=== PATIENT | male | born 1960 | race Caucasian/White ===

== ENCOUNTER 2017-02-10 09:24 | Inpatient (IN) | payer BC ==
[~2017-02-10] VITALS: Ht 180.3 cm; Wt 151.1 kg
--- NOTE | 2017-02-10 09:30 | NUR ---
PT ARRIVE TO ROOM 122 AT THIS TIME. HE REPORTS PAIN 4/10 THROBBING AFTER AMBUALTING TO BATHROOM TO CHANGE INTO GOWN AND VOID. HE IS ALERT AND ORIENTED.
--- NOTE | 2017-02-10 11:34 | NUR ---
PT IS RESTING IN BED, RIGHT LEG IN OVERHEAD SLING ELEVATED AT HEART LEVEL. HE HAS BEEN GIVEN 2MG I.V. MORPHINE AND ONE TAB NORCO ORAL FOR PAIN 10/10. HE IS DRINKING WATER EATING APPLESAUCE AND HAS BEEN GIVEN MENU TO ORDER LUNCH. HAS BEEN IN TO ASSESS PT, RE-DRESS RIGHT FOOT AND COLLECT SAMPLE OF DRAINAGE FOR LAB.
--- NOTE | 2017-02-10 15:05 | NUR ---
PATIENT IN BED RESTING WATCHING TV. CALL BUTTON IN REACH. NO OTHER NEEDS AT THIS TIME.
--- NOTE | 2017-02-10 16:00 | NUR ---
ASSISTED PATIENT BACK TO BED FROM BATHROOM. SCDS ON. FRESH ICE WATER AND SODA GIVEN. CALL BUTTON IN REACH. RIGHT FOOT ELEVATED WITH SLING. NO OTHER NEEDS AT THIS TIME.
--- NOTE | 2017-02-10 16:34 | NUR ---
PT RESTING IN BED AFTER UP TO BATHROOM TO HAVE BM, ONE PERSON STANDBY ASSIST. PT REPORTS PAIN IS BETTER AT 4-5/10, HE WOULD LIKE IT TO BE BETTER, ONE NORCO ADMINISTERED 10/325 PO PRN. PT IS A 1 ON CIWA SCALE.
--- NOTE | 2017-02-10 16:46 | NUR ---
PT RESTING IN BED RIGHT LEG UP ELEVATED IN OVERHEAD LIFT SLING. PT TOELRATING WELL
--- NOTE | 2017-02-10 17:36 | NUR ---
PT REPORTS PAIN 5/10. 2MG I.V. MORPHINE ADMINSTRATED AT THIS TIME. PT ALERT AND ORIENTED, SPOUSE AT BEDSIDE. RN DISCUSSED WITH PT SOME OF THE THINGS TO EXPECT TOMORROW BEFORE AND AFTER SURGERY
--- NOTE | 2017-02-10 18:26 | NUR ---
PT DIRECT ADMIT THIS AM 0930. HE HAS BEEN ALERT AND ORIENTED, SCORED 1 ON CIWA, RIGHT LEG ELEVATED IN OVER HEAD SLING. PT REPORTS PAIN ON GOING 4-6/10, HAVE BEEN GIVING 2MG I.V. AND NORCO AVAILABLE PRN. HE IS ONE PERSON ASSIST. RED AND SWELLING HAS IMPROVED OVER SHIFT. HE HAS BEEN EATING WELL NO NAUSEA, AFEBRILE. IS CONSULTING AND HAS BEEN IN TO ASSESS PT AND RE-DRESSED RIGHT FOOT. PT HAS BEEN COOPERATIVE WITH CARE PLAN. PT SCHEDULED FOR SURGERY TOMORROW AT 1145.
--- NOTE | 2017-02-10 18:40 | NUR ---
PATIENT SITTING UP IN BED WATCHING TV. RN IN ROOM TALKING TO PATIENT. IN ROOM. CALL BUTTON IN REACH. ICE WATER GIVEN.
--- NOTE | 2017-02-10 18:43 | NUR ---
CALLED TO NOTIFY OF PT B/P ELEVATED. SAID SHE WOULD ADD SOME ORDERS
--- NOTE | 2017-02-10 20:00 | NUR ---
RECEIVED REPORT AT 1930. FOUND PT IN BED WATCHING TV. PT STATED AT THAT TIME THAT HIS PAIN WAS TOLERABLE. PT OVERALL SEEMS A LITTLE FRUSTRATED.
--- NOTE | 2017-02-10 22:33 | NUR ---
AT 2014 SBP WAS 189, MD RASH WAS CALLED. PT RECEIVED LISINOPRIL 1 HOUR PRIOR. PER MD WILL CONTINUE TO WATCH. SBP NOW IS 177. V/S OTHERWISE WERE WDL, ALL LOBES ARE CLEAR, EDEMA IN RIGHT FOOT IS +1. PER DAY RN AND PT REDDNESS AND EDEMA HAS LESSEND SINCE VANCOMYCIN TREATMENT STARTED. PT SO FAR RECEIVED 1TAB NORCO FROM NE. DRESSING IS IN PLACE AND IT IS C/D/I.
--- NOTE | 2017-02-11 00:33 | NUR ---
PT IS AWAKE WATCHING TV. PT HAS BEEN NPO SINCE 0000.
--- NOTE | 2017-02-11 03:00 | NUR ---
PT IS SLEEPING AT THIS TIME.
--- NOTE | 2017-02-11 05:53 | NUR ---
AT START OF SHIFT SBP WAS 189, MD JARRELL WAS CALLED. I WAS TOLD TO MONITOR. AT THIS TIME, SBP IS <180. AT START OF SHIFT PT WAS ALSO HAVING DIFFICULTY WITH PAIN CONTROL WHICH HAS RESOLVED SINCE BY UTILIZING ALL PRN PAIN MEDS AVAILABLE. PT HAS BEEN NPO SINCE 0000. IV LR IS RUNNING AT 100ML/HR. LR BAG FOR SX IS HANGING, CONSENT STILL NEEDS TO BE SIGNED AND PRE-OP BATH GIVEN. PT HAS NOT SEEMED VERY ANXIOUS TO ME SO FAR. DRESSING ON RIGHT FOOT IS C/D/I, REDDNESS HAS LESSEND A LOT SINCE START OF THIS SHIFT AND PER PT SO HAS THE EDEMA ON HIS RIGHT FOOT. NO NEW ISSUES NOTED SO FAR.
--- NOTE | 2017-02-11 09:00 | NUR ---
PATIENT UP AMBULATING IN ROOM TO BR. LEG ELVATED WITH MAYO. PATIENT AAOX3, PAIN WELL CONTROLLED WITH IV MORPHINE. FULL ASSESMENT DONE.
--- NOTE | 2017-02-11 11:23 | NUR ---
SPOKE WITH PATIENTS AT ROOM. SHE STATES SHE WILL LET US KNOW IF THERE IS ANYTHING THEY NEED TO RETURN HOME SAFELY. AT THIS TIME SHE KNOWS OF NO BARRIERS.
--- NOTE | 2017-02-11 11:25 | EKG ---
[facility] [address] [facility] [place], [place] [address] Signed Normal sinus rhythm Normal ECG No previous ECGs available Confirmed by KARAN HSIEH MD ([id number]) on 02/11/2017 11:25:42 AM Electronically Signed By: KARAN HSIEH MD 02/11/17 1125 PATIENT NAME: MAYRANORA Carias Electrocardiogram DATE OF : 58 PHYSICIAN: KARAN HSIEH MD REPORT #: [id number] REPORT IS CONFIDENTIAL AND NOT TO BE RELEASED WITHOUT AUTHORIZATION
[2017-02-11] MEDS ORDERED: MELOXICAM15 MG PO (11:30)
[2017-02-11] MEDS ORDERED: OMEPRAZOLE20 MG PO (11:32)
[2017-02-11] MEDS ORDERED: LISINOPRIL20 MG PO (11:32)
[2017-02-11] MEDS ORDERED: METOPROLOL SUC100 MG PO (11:34)
[2017-02-11] MEDS ORDERED: POTASSIUM CHLO20 ME1 PO (11:34)
[2017-02-11] MEDS ORDERED: FUROSEMIDE20 MG PO (11:34)
[2017-02-11] MEDS ORDERED: SERTRALINE HCL100 MG PO (11:35)
[2017-02-11] MEDS ORDERED: LEVOTHYROXINE50 MCG PO (11:35)
[2017-02-11] MEDS ORDERED: KEFLEX500 MG PO (12:40)
--- NOTE | 2017-02-11 12:41 | NUR ---
MED REC COMPLETE WITH [facility], [facility], AND PATIENT INTERVIEW.
--- NOTE | 2017-02-11 12:43 | NUR ---
PRE-SURGERY WIPES GIVEN BY STUDENT NURSE AND YANET CHADWICK.
--- NOTE | 2017-02-11 13:36 | NUR ---
PATIENT LEFT TO SURGERY, HANDOFF TO HORTENSIA CHADWICK.
--- NOTE | 2017-02-11 15:30 | NUR ---
CALLED DR. LEROY DISCUSSED PAIN CONTROL, MORPHINE ORDER CHANGED TO 2-4 MG Q 1 HR PRN FOR PAIN. PATIENT REFUSED ICE, HAS FOOT ELEVATED. CALLS TO GET UP TO BATHROOM. ADMINISTERED 4MG OF MORPHINE IV, PATIENT STATES " THAT TOOK THE EDGE OFF" NOW RATES PAIN 3/10 ON PAIN SCALE. STRONG PEDAL PULSE TO FOOT. DSG C/D/I. VS STABLE. CONTINUING Q1 HR VS AND SPOT CHECK OXYGEN SATUATION, 98% ON RA.
--- NOTE | 2017-02-11 15:43 | NUR ---
02/11/17 1543 Caterina Wallis 1510 PT REPORTING 7/10 PAIN MEDICATION GIVEN PRE EMAR. 1525 PT TAKING ORAL MEDICATION WITH WATER, INDICATED FOR WITHDRAWL PROTCOL. 1541 PT REPORTS A DECREASE IN PAIN TO 5/10 PAIN.
--- NOTE | 2017-02-11 16:20 | NUR ---
PATIENT BACK FROM PACCU TO FLOOR@ 1600. PATIENT UP TO BATHROOM, VOIDED 300 ML OF CONCENTRATED URINE. PATIENT SIPPING ON WATER AND TOLERATING JELLO. UNSTEADY ON FEET, NEEDED STBY ASSIST. NOW IN BED WITH FOOT ELEVATED. RATES PAIN 6/10 ON PAIN SCALE, THROBBING PAIN IN FOOT. ADMINISTERED 2MG MORPHINE IV. VS STABLE.
--- NOTE | 2017-02-11 17:45 | NUR ---
TELEPHONE ORDER FROM DR. LEROY TO CHANGE MORPHINE ORDER TO 2-4 MG IV Q1-2 HRS FOR PAIN CONTROL PRN. ADMINISTERED 4 MG IV MORPHINE, STATES " THAT REALLY TOOK THE EDGE OFF". NOW RATES PAIN 4/10 ON PAIN SCALE. FOOT ELEVATED ON PILLOWS, CANNOT TOLERATE MAYO SLING. CALLS APROPRIATLEY TO BATHROOM, APPEARS STEADY ON FEET. VS STABLE, SPOT CHECKING OXYGEN 98%RA. PATIENT NOW ORDERING DINNER. NO NAUSEA OR VOMITING, TOLERATING PO LIQUIDS WELL AND ADEQUATE, NOW SL.
--- NOTE | 2017-02-11 19:30 | NUR ---
REPORT RECVD FROM YANET CHADWICK, IN TO CHECK ON PT. PT AWAKE IN BED, AT BEDSIDE. PT STATES THAT HE IS HAVING INCREASED SHARP PAIN TO THE SURGICAL SITE. PER YANET CHADWICK, ORDER FOR MORPHINE 2-4 MG EVERY HOUR NEEDED FOR PAIN. PT DENIES NAUSEA OR VOMITING SINCE SURGERY, TOLERATING REGUALR DIET WELL. WILL PLAN TO ADMINISTER PAIN MEDICATION MORE FREQUENTLY. DRSG C/D/I, LEG ELEVATED ON PILLOW. NO FURTHER NEEDS AT THIS TIME. CALL LIGHT IN REACH.
--- NOTE | 2017-02-11 19:40 | NUR ---
MORPHINE 4 MG GIVEN FOR SHARP PAIN IN R 3RD DIGIT. PT IN BED RESTING. ASSESSMENT COMPLETE. FRESH WATER GIVEN. PUDDING AND JELLO GIVEN. PT UP TO BATHROOM WITH STANDBY ASSIST. PT CAUTIONED ABOUT DIZZINESS AFTER SURGERY AND WILL RECVING NARCOTIC PAIN MEDICATION. PT IMPULSIVE AND SLIGHTLY UNSTEADY ON FEET. AMBULATED BACK TO BED, NO FURTHER NEEDS AT THIS TIME. CALL LIGHT IN REACH.
--- NOTE | 2017-02-11 21:30 | NUR ---
PER MUD GRINDER PT REQUESTING PAIN MEDICATION. MORPHINE 4 MG GIVEN FOR SHARP PAIN IN R 3RD DIGIT. PT UP TO BATHROOM TO URINATE, PT UNSTEADY ON FEET. PT ADVISE THAT NEXT TIME TO USE URINAL IN BED. PT UPSET, BUT AGREES. NO FURTHER NEEDS AT THIS TIME, CALL LIGHT IN REACH.
--- NOTE | 2017-02-11 22:45 | NUR ---
IN TO CHECK ON PT, PT APPEARS TO BE SLEEPING. WHEN ENTERING ROOM PT AWAKES. RATES PAIN IN R FOOT 10, REQUEST PAIN MEDICATION. DISCUSSED ORAL VS IV PAIN MEDICATION. PT FEELS THAT ORAL NORCO NO HELPING WITH PAIN AT THIS TIME. MORPHINE 4 MG GIVEN. PT ADVISED TO CALL IF NEEDING TO URINATE. PULSE OX IN PLACE TO MONITOR FOR RESPIRATORY DEPRESSION. NO FURTHER NEEDS, CALL LIGHT IN REACH.
--- NOTE | 2017-02-12 00:30 | NUR ---
PER VENEER GLUER PT CALLED TO AMBULATE TO RESTROOM. PER RN PT ADVISED TO USE URINAL IN BED DUE TO NARCOTIC ADMINISTRATION AND UNSTABILITY ON FEET. PT UPSET ABOUT USING URINAL IN BED. PT ATTEMPTED TO URINATE, NO UNRINE NOTED. PT BACK TO BED, ADVISED TO CALL WITH NEEDING TO URINATE. CALL LIGHT IN REACH.
--- NOTE | 2017-02-12 01:51 | NUR ---
IN TO CHECK ON PT, APPEARS TO BE SLEEPING. NO APPARENT DISTRESS NOTED. RR EVEN AT 12, O2 @ 92%. CALL LIGHT IN REACH.
--- NOTE | 2017-02-12 02:44 | NUR ---
OR NURSE MANAGER IN TO OBTAIN VITALS. PT AWAKE, UP TO USE URINAL AT BEDSIDE. PT C/O 6/10 PAIN IN THE R FOOT. MORPHINE 2 MG GIVEN. DRGS C/D/I. NO FURTHER NEEDS AT THIS TIME. CALL LIGHT IN PLACE.
--- NOTE | 2017-02-12 05:16 | NUR ---
PT HAS RESTED WELL THROUGH OUT THE SHIFT. C/O SHARP PAIN IN THE R FOOT, RATES PAIN 5-8/10. MORPHINE AND NORCO GIVEN. DRSG C/D/I, CMS INTACT. IV ABX GIVEN. RLE ELEVATED ON PILLOW. PT ON REG DIET, TOLERATING WELL. BEDREST WITH BRP. PT AAO X3.
--- NOTE | 2017-02-12 07:50 | NUR ---
PATIENT AWAKE IN BED. REFILLED WATER, ALSO GOT PATIENT A COLA. WHITEBOARD UPDATED. AM CARE ITEMS IN BATHROOM.
--- NOTE | 2017-02-12 08:55 | NUR ---
PATIENT UP TO BATHROOM THIS MORNING. RATES PAIN 6/10 CONSTANT SHARP ACHE. ADMINSITERED 2MG OF IV MORPHINE AND PRN NORCO FOR PAIN RELIEF. ENCOURAGED PATIENT TO BE UP IN RECLINER, CALL LIGHT WITHIN REACH, NOW WATCHING TELEVISION. PATIENT STATED, " THE NORCO GIVES ME HEARTBURN, TWICE NOW WHEN I HAVE TAKEN IT AT NIGHT I GET BAD HEARTBURN." PROVIDED PATIENT WITH EDUCAITON AND REMINDED HIM NOT TO TAKE ON EMPTY STOMACH, AT LEAST EAT A CRACKER. PATIENT VERBALIZED UNDERSTANDING. EATING WELL, AND VOIDING WELL. DSG TO FOOT C/D/I. GOOD PEDAL PULSES. NOW ELEVATED ON PILLOWS. PATIENT REFUSED ICE. LIBRIUM ADMINISTERED THIS MORNING. CIWA 0.
--- NOTE | 2017-02-12 10:34 | NUR ---
PATIENT UP TO BATHROOM, HAS BEEN TOLERATING AMBULATING ON FOOT. PATIENT REQUESTING MORE MORPHINE, RATES PAIN 6/10 ON PAIN SCALE. ADMINISTERED 2 MG IV. DSG TO FOOT INTACT. LEFT MESSAGE FOR DR. LEROY IN REGARDS TO PAIN CONTROL.
--- NOTE | 2017-02-12 10:51 | NUR ---
NURSE IN ROOM. SHE REFILLED WATER
--- NOTE | 2017-02-12 10:59 | NUR ---
DISCUSSED PAIN CONTROL WITH DR. LEROY. NEW ORDER FOR OXYODONE 10-20 MG q [address] LEROY ADVISED TO BE AWARE OF PATIENT'S HEAVY DRINKING PAST AND COULD POTENTIALLY HAVE HIGH TOLERANCE TO NARCOTICS. DISCUSSED WITH DR. LEROY PATIENT PUPILS APPEARING PINPOINT, AND REQUESTING MORPHINE. PATIENT SHOWS NO SIGN OF GRIMACE, AND APPEARS TO TOLERATE AMBULATING ON FOOT WELL. PATIENT STATES " ITS A CONSTANT SHARP PAIN INTO WHERE MY TOE WAS, I DON'T EVEN KNOW IF THEY REALLY TOOK IT OFF, GUESS I HAVE A GOOD BAR JOKE AFTERALL". PATIENT LAUGHED, SITTING BACK IN RECLINER WATCHING TELEVISION. CALL LIGHT IN REACH. MAKAYLA ARTEAGA TO INFUSE.
--- NOTE | 2017-02-12 11:44 | NUR ---
PATIENT IN CHAIR ASLEEP.
--- NOTE | 2017-02-12 15:47 | NUR ---
NURSE IN ROOM.
--- NOTE | 2017-02-12 16:00 | NUR ---
PATIENT UP TO BATHROOM, AMBULATED OUT INTO FRANCO. 20 MG PO OXYCODONE CONTROLLING PAIN WELL, NO IV MORPHINE ADMINSITERED. PATIENT STATES " I AM FEELING OKAY" STEADY ON FEET, APPEARS DROWSY. PATIENT READING BOOK IN RECLINER, COMPLAINS OF NODDING OFF TOO MUCH. PUPILS REACTIVE TO LIGHT. ENCOURAGED TO COUGH AND DEEP BREATHE AND USE IS. VS STABLE. DSG TO FOOT INTACT. PATIENT CONTINUES TO ELEVATE. EATING WELL, DRINKING WELL. URINE APPEARS CONCENTRATED. CIWA 0, LIBRIUM SCHEDULED.
--- NOTE | 2017-02-12 18:00 | NUR ---
PATIENT APPEARS COMFORTABLE NOW IN BED, AT BEDSIDE. PATIENT ON PHONE PLAYING GAMES. RATES PAIN 3/10 ON PAIN SCALE WHILE RESTING. DRSG C/D/I. CALL LIGHT WITHIN REACH, REMINDED TO CALL IF GOING TO BATHROOM AND TO USE URINAL TO MEASURE VOIDS.
--- NOTE | 2017-02-12 20:00 | NUR ---
PATIENT SITTING IN HIS ROOM QUIETLY VISITING WITH HIS AND WATCHING TV.
--- NOTE | 2017-02-12 20:00 | NUR ---
PATIENT RESTING QUIETLY IN HIS ROOM. APPEARS TO BE SLEEPING LOOKS HAVE TO HAVE DRINKING MOST OF ONE OF 2 BEERS ORDERED FOR HIM. HE DID AWAKE WITH LIGHT TOUCH AND CONVERSED APPROPRIATELY.
--- NOTE | 2017-02-12 22:00 | NUR ---
PATIENT RESTING QUIETLY IN BED WATCHING TV. HAS GONE HOME.
--- NOTE | 2017-02-13 00:01 | NUR ---
PATIENT HAS BEEN RESTING QUIETLY, USING URINAL APPROPRIATELY. IS ON O2 SAT FOR TAKING NARCOTIC PAIN MEDS. CAN USUALLY KEEP PAIN BETWEEN A 4-6/10 WITH AMPUTATED TOE.
--- NOTE | 2017-02-13 02:00 | NUR ---
PATIETN HS BEEN RESTING WELL, PAIN FAIRLY WELL CONTROL WITH ORAL PAIN MEDS. LUNGS HAVE BEEN DEMINISHED THOUGHOUT WITH A SLIGHT RESPIRATORY WHEEZE.
--- NOTE | 2017-02-13 04:30 | NUR ---
PATIENT RESTING YAQUELIN WATCHING TV IN HIS ROOM PATIENT HAS NO C/O AT THIS TIME.
--- NOTE | 2017-02-13 06:07 | NUR ---
NURSE NOTIFIED RE NAIMAP.
--- NOTE | 2017-02-13 06:32 | NUR ---
REFILLED 2 ICE WATER.
--- NOTE | 2017-02-13 06:57 | NUR ---
pATIENT HAS OXYCODONE THROUGHT THE NIGHT FOR HIS PAIN AND HAS SLEPT WELL INBETWEEN MEDS EXCEPT FOR WHEN HIS DRESSING CAME OFF HIS FOOT AND HAD TO BE REDRESSED. PATIENT HAS A TROUGH DO THIS MORNING FOR HIS VANCO.
--- NOTE | 2017-02-13 07:17 | OR ---
[facility] [address] [place], [place] [address] Signed DATE OF PROCEDURE: 02/11/17 PREOPERATIVE DIAGNOSIS Osteomyelitis, proximal phalanx, right 3rd toe. POSTOPERATIVE DIAGNOSIS Osteomyelitis, proximal phalanx, right 3rd toe. PROCEDURE Amputation, right 3rd toe via disarticulation at the MTP joint. SURGEON: Nehemias Suarez MD. ANESTHESIA General. We sent aerobic and anaerobic cultures as a single specimen. DESCRIPTION OF PROCEDURE The patient was taken the operating room, placed on table supine position. After anesthesia was induced and the airway gently supported, the right lower extremity was positioned, prepped and draped in a routine sterile fashion. The leg was exsanguinated with elevation, after which the pneumatic tourniquet was inflated to 300 mmHg pressure. We then made a fishmouth incision about the base of the 3rd toe, skirting 2 areas that were draining a purulent material. Full-thickness flaps were created dorsally and plantarward. Once we had resected the skin, the toe literally came off through the midportion of the proximal phalanx and there was a fair amount of necrotic and purulent material. We were then able to grab the base of the proximal phalanx over the Ammon and gently enucleated and delivered off the field. Cultures were then taken. The wound was copiously irrigated and then closed in a single layer with 3-0 nylon. A bulky sterile dressing was applied and the patient was awakened to the recovery room where he arrived in stable condition. Counts were correct and antibiotic protocols were followed. MD ADRIANO Lee/Marionl /[id number] Electronically Signed By: NEHEMIAS SUAREZ MD 02/13/17 0717 PATIENT NAME: NORA NUNEZ Aretha OPERATIVE REPORT DATE OF : 58 PHYSICIAN: NEHEMIAS SUAREZ MD REPORT #: [id number] REPORT IS CONFIDENTIAL AND NOT TO BE RELEASED WITHOUT AUTHORIZATION [address] [place], [place] [address] Signed cc: Jose Guadalpue Pete DO Electronically Signed By: NEHEMIAS SUAREZ MD 02/13/17 07 PATIENT NAME: NORA NUNEZ Aretha OPERATIVE REPORT DATE OF : 58 PHYSICIAN: NEHEMIAS SUAREZ MD REPORT #: [id number] REPORT IS CONFIDENTIAL AND NOT TO BE RELEASED WITHOUT AUTHORIZATION
--- NOTE | 2017-02-13 08:00 | NUR ---
DR. LEROY ROUNDED ON PATIENT, REMOVED DSG. STATED " FOOT LOOKS GOOD, YOU ARE READY TO GO HOME" NEW ORDERS TO RINSE WITH PEROXIDE AND CLEANUP DRY BLOOD THEN TO REDRESS WITH NON ADHERANT MESH, GAUZE WRAP WITH KERLEX AND THEN NETTING OVER THE TOP AND MICHOACANO WRAP TO REINFORCE AND KEEP IN PLACE. PROVIDED PATIENT WITH WALKING SHOE FROM EMERGENCY DEPARTMENT TO HELP PROTECT THE TOE AND KEEP CLEAN AND DRY. PAIN WELL CONTROLLED WITH OXYCODONE, AGAIN BROUGHT PATIENT'S PIN POINT PUPILS TO DR. LEROY'S ATTENTION WHO STATED " IT'S NO PROBLEM". DISHCARGE ORDERS WRITTEN, MARIBELLO DC'D AND SCRIPT FOR CIPRO WRITTEN. PATIENT TO FOLLOW UP WITH DR. LEROY IN 7-10 DAYS AND TAKE A COUPLE OF WEEKS OFF WITH WORK.
--- NOTE | 2017-02-13 09:30 | NUR ---
ART DISPLAY MAKER 2.28 PATIENT [facility] ELEVATED THIS MORNINING WELL. DR. HANKS CALLED AND SPOKE WITH DR. LEROY AND STATED " WE WILL BE KEEPING NORA NUNEZ AND PROVIDING HIM WITH IV FLUID THERAPY TO GET CREATINE TO LOWER." NEW ORDERS TO COLLECT URINE, AND SOME MEDICATIONS DC'D. DISCUSSED WITH PATIENT AND HIS , APPEARED FRUSTRATED BUT VERBALIZED UNDERSTANDING. NEW ORDER FOR PATIENT TO NOW HAVE 2 BEERS WITH MEALS. ORDERED PATIENT'S LUNCH AND SET UP FOR SHOWER, VERBALIZED HE WOULD WHEN HE CALMED DOWN. STATED " WHY DO PEOPLE HAVE TO BE INCOMPETENT?" EXPLAINED TO PATIENT DR. LEROY WAS IN AT 0800 AND LAB VALUES DID NOT POPULATE UNTIL 0830, PATIENT APPEARED TO ACCEPT THIS RESPONSE AND VERBALIZED BETTER UNDERSTANDING TO WHY DISCHARGE HOME WAS ON HOLD AT THIS TIME. APPEARS SUPPORTIVE, AND LEFT TO GET PATIENT A FEW ACITIVITIES LIKE PUZZLE BOOKS TO DO WHILE IN HOSPITAL.
[2017-02-13] MEDS ORDERED: OXYCODONE HCL10 MG PO (10:32)
[2017-02-13] MEDS ORDERED: CIPRO500 MG PO (10:33)
--- NOTE | 2017-02-13 12:00 | NUR ---
UP IN RECLINER, APPEARS COMFORTABLE. NO COMPLAINTS OF PAIN AT THIS CARLOS, NOW EATING LUNCH, NOTED BEER PLACED IN DRAWER. TOLD PATIENT THAT HE WOULD HAVE TO PROVIDE EMPTY CANS TO STAFF TO GET MORE BEER. PATIENT STATED " JUST TRYING TO SAVE UP FOR A 6-PACK SO I CAN SIT BACK AND DRINK THIS EVENING". TOLD PATIENT DOCTOR ORDER OF 2 BEER WITH EACH MEAL HAD TO BE FOLLOWED. PATIENT DEMONSTRATED UNDERSTANDING, AND STARTED TO DRINK BEER. CIWA 0
--- NOTE | 2017-02-13 14:00 | NUR ---
LIBRIUM DECREASED, SECONDARY TO PATIENT NOW DRINKING BEER WITH MEALS. APPEARS TO BE TOLERATING WELL. NO COMPLAINTS OF PAIN AT THIS TIME. PLAN TO SHOWER WHEN IV BOLUS COMPLETE. VS STABLE.
--- NOTE | 2017-02-13 16:30 | NUR ---
ADMINISTERED OXYCODONE 20 MG PO AND LIBRIUM, PATIENT NOW SITTING UP IN CHAIR, DONE WITH SHOWER, CONNECTED BACK TO IV FLUIDS. RATES PAIN 5/10 ON PAIN SCALE, DESCRIBES PAIN SHARP. DSG TO FOOT DRY AND INTACT. NO DRAINAGE NOTED. GOOD PEDAL PULSES. LEFT MESSAGE FOR DR. LEROY. CALLED FOR ORDERS FOR DRSG CARE AT HOME, CHARGE NURSE AWARE PATIENT NEEDS ORDERS FOR DSG CARE BEFORE BEING DISCHARGED HOME AND INSTRUCTION FOR WHAT NEEDS TO BE DONE. PATIENT APPEARS TO HAVE TREMOR WHEN UP MOVING AROUND AND EQUALIBRIUM APPEARS OFF HE SWAYS SLIGHTLY BACK AND FORTH. CIWA SCORE 2.
--- NOTE | 2017-02-13 18:21 | NUR ---
PT DOING WELL. TOOK DINNER TRAY. AND GAVE HIM FRESH WATER.
--- NOTE | 2017-02-13 22:00 | NUR ---
PATIENT STILL RESTING QUIETLY, STILL WORKING ON HIS BEERS AND WATCHING TV.
--- NOTE | 2017-02-14 00:01 | NUR ---
PATIENT STILL WATCHING TV BUT DOSEING AT TIMES. DRESSING TO RT FOT I REPLACED LAST NIGHT IS STILL IN PLACE.
--- NOTE | 2017-02-14 04:05 | NUR ---
PATIENTIS QUIET AND RESTING WITH EYES CLOTHES. HE SEEMS TO HAVE HAD A VERY DECENT NIGHT. HE STILL HAS PINPOINT PUPILS, AND FINISHED BOTH OF HIS BEERS.
--- NOTE | 2017-02-14 08:00 | NUR ---
PATIENT UP IN RECLINER, EATING BREAKFAST. RATES PAIN 2/10 ON PAIN SCALE. PROVIDED PATIENT BEER. PATIENT PLACED IN DRAWER, TOLD PATIENT NEEDS TO DRINK BEER. NOTED WOB APPEARS HEAVIER AND INCREASED. STATES " OKAY I AM NOT GONNA ARGUE ABOUT DRINKING BEER". VS STABLE. DR. LEROY TO ROOM, DISCUSSED WORK ORDER, ON CHART WILL FILL OUT AT NH. DR. LEROY ORDERED THAT PATIENT COULD HAVE BAND-AID COVER INSCIION SITE TO PROTECT SUTURES. DR. LEROY AWARE OF SENIOR QA TESTER LEVEL FROM THIS MORNING. DR. LEROY DISCUSSED WITH PATIENT STAY IN HOSPITAL TO BE CONTINUED A FEW DAYS.
--- NOTE | 2017-02-14 10:09 | NUR ---
ADMINISTERED 5MG IV VALIUM,CIWA OF 9. PATIENT UP TO BATHROOM UNABLE TO COLLECT URINE SAMPLE PATIENT STATES " ITS NOT GONNA HAPPEN RIGHT NOW" VERY UNSTEADY ON FEET. PATIENT NOW IN BED WITH BED ALARM ON, PATIENT NOT CALLING NURSE TO AMBULATE INTO BATHROOM. NOW 2 PERSON ASSIST. CONT PULSE OX APPLIED. IV FLUIDS CONTINUE TO INFUSE.
--- NOTE | 2017-02-14 10:41 | NUR ---
PT IS DIZZY. AWAKE IN CHAIR. TOLD NURSE.
--- NOTE | 2017-02-14 11:09 | NUR ---
CIWA SCORE OF 9, REPORTED TO DR. HANKS, REPORTED PATIENT NOT BEING ABLE TO STAND FROM BED WITHOUT ASSIST. PATIENT STATED " I SEE SHADOW RUNNING ACROSS THE ROOM" AND STATED " I THOUGHT MY DOGS WERE IN THE ROOM AND YELLED FOR THEM TO QUIET." ADMINISTERED [address]MG [address] HANKS NOW IN ROOM TO ASSESS. SPEAKING WITH PATIENT AND .
--- NOTE | 2017-02-14 11:30 | NUR ---
PATIENT TO TRANSFER TO CCU FOR CLOSER MONITORING FOR ETOH WITHDRAWAL. PATIENT RESTING IN BED WITH EYES CLOSED. BED ALARM ON. PATIENT AND FAMILY VERBALIZE UNDERSTANDING OF WHY BEING TRANSFERED TO CCU. APPEARS TEARFUL, AND STATED TO PATIENT " WHEN WE GET HOME WE HAVE SOME PROBLEMS WE NEED TO FIGURE OUT" PATIENT NOW APPEARS WITHDRAWN, VERY QUIET. REPORT TO KRIS CHADWICK CCU.
--- NOTE | 2017-02-14 12:45 | NUR ---
ADMITTED TO CCU FROM MED-SURG VIA BED. PATIENT DRINKS 12 BEERS Q DAY. ADMITTED HERE FOR ETOH WITHDRAWAL. S/P AMPUTATION 3RD TOE ON R FOOT. IS DROWSY ON ADMIT TO CCU.
--- NOTE | 2017-02-14 13:53 | NUR ---
RIGHT LEG ELEVATED WITH PILLOW. RIGHT FOOT WRAPPED W/MICHOACANO WRAP. PATIENT IS AT BEDSIDE.
--- NOTE | 2017-02-14 14:48 | NUR ---
ASSISTED PT UP TO BSC WITH 1 PERSON ASSIST, PT SOB WITH EXERTION, BACK TO BED WITH RIGHT LEG ELEVATED ON PILLOW
--- NOTE | 2017-02-14 17:56 | NUR ---
RESTFUL. AWAITING DINNER. TAKING WATER WELL. GOOD U/O.
--- NOTE | 2017-02-14 18:06 | NUR ---
VALIUM 5 MG IV GIVEN.
--- NOTE | 2017-02-14 18:39 | NUR ---
AMBULATED TO BR WITH WALKER TO HAVE STOOL. IS FAIRLY STABLE ON FEET WITH WALKER.
--- NOTE | 2017-02-14 19:43 | NUR ---
REPORT RECEIVED FROM KRIS CHADWICK. IN TO SEE PT AND DO ASSESSMENT. PT LYING IN BED WATCHING TV. LUNGS CLEAR, PT DENIES PAIN, RIGHT FOOT ELEVATED ON PILLOW, MICHOACANO WRAP DRESSING CDI AND GOOD CMS TO RIGHT FOOT. ALERT AND ORIENTED, CALL LIGHT IN REACH AND SIDE RAILS UP, BED ALARM ON.
--- NOTE | 2017-02-14 20:42 | NUR ---
PT IRRITABLE, DID NOT USE CALL LIGHT FOR ASSISTANCE TO GET UP, BED ALARM GOING OFF. PT UP WITH [employer] SUPERVISOR TO BR TO VOID. BACK TO BED. BED ALARM ON. EXPLAINED TO PT THAT WE ARE WORRIED ABOUT HIS SAFETY AND DISCUSSED ETOH W/D RISKS AND SAFETY. PT STATED HE WAS 'ANXIOUS TO GET OUT OF HERE'. PT OPENING BEER AND 5MG PO VALIUM GIVEN.
--- NOTE | 2017-02-14 20:45 | NUR ---
RT IN TO WORK WITH PT AND DO NEB TX.
--- NOTE | 2017-02-14 23:00 | NUR ---
UP TO BR TO VOID THEN BACK TO BED. CIWA SCORE OF 10 AT THIS TIME.
--- NOTE | 2017-02-15 00:28 | NUR ---
UP TO BR TO VOID THEN BACK TO BED, ASSESSMENT DONE UNCHANGED FROM PREVIOUS.
--- NOTE | 2017-02-15 02:15 | NUR ---
PT UP TO BR TO VOID THEN BACK TO BED. GETTING MORE IRRITABLE.
--- NOTE | 2017-02-15 03:46 | NUR ---
UP TO BR TO VOID THEN BACK TO BED. PT SEEMS MORE IRRITABLE AND IMPULSIVE. 5MG IV VALIUM GIVEN.
--- NOTE | 2017-02-15 03:48 | NUR ---
CIWA SCORE OF 11 AT THIS TIME.
--- NOTE | 2017-02-15 06:43 | NUR ---
UP TO BR TO VOID THEN BACK TO SIT UP IN CHAIR. CALL LIGHT IN LAP.
--- NOTE | 2017-02-15 08:00 | NUR ---
SITTING UP IN CHAIR. DENIES PAIN. ASSESSMENT DONE. TALKED WITH PATIENT ABOUT PLAN OF CAR FOR DAY. PATIENT WITH FLAT AFFECT. NO SIGNS OF DT'S AT THIS TIME.
--- NOTE | 2017-02-15 12:27 | NUR ---
PT WAS ASLEEP. FARRUKH PONCE SHARED THAT SHE FELT IT BEST TO LET HIM REST. HE IS STRUGGLING SOME WITH HIS CONDITION-HIS TERE SAID HE IS JUST DOWN RIGHT CRANKY. I WILL CONTINUE TO FOLLOW
--- NOTE | 2017-02-15 13:21 | DS ---
[facility] [address] [place], [place] [address] Signed DATE OF DISCHARGE: 02/13/17 FINAL DIAGNOSIS AT THE TIME OF DISCHARGE Osteomyelitis, right 3rd toe. PROCEDURES: Right 3rd toe amputation. SURGEON: Nehemias Suarez M.D. HISTORY OF PRESENT ILLNESS Patient had a several week history of increasing pain and swelling over his right 3rd toe following the blunt force trauma. This did not resolve with oral antibiotics. When he was seen in the Orthopedic Clinic, he was draining purulent material from the 3rd toe. HOSPITAL COURSE The patient was admitted and evaluated by the Hospitalist. He was felt to be medically optimized for surgical intervention. So, on the , he was taken to the operating room where he underwent the disarticulation, amputation of the right 3rd toe way to the MTP joint. We proceeded with primary wound closure. Subsequently, cultures have been negative to this point. However, he was taking antibiotics at the time of the amputation. He otherwise is doing well. There is going to be good pain control with OxyIR. We will have him continue with bed rest and elevation of the leg at home. Follow up in 7-10 days. We are going to ask him to minimize ambulation on the foot and keep the incision area clean and dry all the time. MD ADRIANO Lee/Modl /[id number] cc: Jose Guadalupe Pete DO Electronically Signed By: NEHEMIAS SUAREZ MD 02/15/17 1321 PATIENT NAME: NORA NUNEZ Aretha DISCHARGE SUMMARY DATE OF : 58 PHYSICIAN: NEHEMIAS SUAREZ MD REPORT #: [id number] REPORT IS CONFIDENTIAL AND NOT TO BE RELEASED WITHOUT AUTHORIZATION
--- NOTE | 2017-02-15 14:42 | NUR ---
TO BR TO HAVE LIQ STOOL. BACK TO CHAIR.
--- NOTE | 2017-02-15 15:12 | NUR ---
ASLEEP. NO DISTRESS NOTED.
--- NOTE | 2017-02-15 16:00 | NUR ---
ASSESSMENT UNCHANGED. DENIES PAIN. HAS BEEN SITTING IN CHAIR WITH FOOT ELEVATED MOST OF DAY. NO PRN MEDICATIONS GIVEN THUS FAR TODAY.
--- NOTE | 2017-02-15 16:30 | NUR ---
DR. HANKS UPDATED VIA PHONE ON PATIENT. PATIENT WILL BE TRANSFERRED TO MEDICAL FLOOR THIS EVENING.
--- NOTE | 2017-02-15 17:20 | NUR ---
TRANSFERRED TO MEDICAL FLOOR VIA CHAIR. REPORT GIVEN.
--- NOTE | 2017-02-15 18:32 | NUR ---
PT ARRIVED TO ROOM 110 ON MEDICAL SURGICAL FLOOR AT 1745. PT HAS FLAT AFFECT. VISITOR AT BEDSIDE. BEER PROVIDED BY CCU NURSE. PT SITTING UP IN RECLINER. CHAIR ALARM PLACED.
--- NOTE | 2017-02-15 19:10 | NUR ---
BEDSIDE SHIFT REPORT RECEIVED FROM FARRUKH DELGADO. PT IS CURRENTLY SITTIN UP IN CHAIR. IV SL. . PT DENIES NEEDS AT THIS TIME, CALL LIGHT IS WITHIN REACH.
--- NOTE | 2017-02-15 21:30 | NUR ---
ASSESSMENT COMPLETED. ALERT/ORIENTED, FLAT AFFECT. DENIES PAIN AND NAUSEA. LUNGS CLEAR, RA. HR REGULAR. BOWEL TONES ACTIVE. 2+EDEMA NOTED IN RIGHT FOOT AND 1+EDEMA NOTED IN LLE. 3RD DIGIT OF RIGHT FOOT IS AMPUTATED, DRESSING C/D/I GAUZE COVERED WITH BANDAID, SMALL AMOUNT OF OLD DRIED DRAINAGE VISIBLE. CMS INTACT. IV WAS NO LONGER PATENT, D/C'D, CATHETER TIP INTACT. PT IN BED, CALL LIGHT WITHIN REACH, DENIES FURTHER REQUESTS.
--- NOTE | 2017-02-15 22:17 | NUR ---
PT CALLED AND STATED HE NEEDED TO USE BATHROOM. UP WITH SBA AND FWW TO BATHROOM, VOIDED LARGE AMOUNT AND THEN RETURNED TO BED. PT DENIES FUTHER REQUESTS. BED ALARM IS ON FOR SAFETY.
--- NOTE | 2017-02-15 23:36 | NUR ---
PT CALLED STATING "I NEED TO GET UP." PT VOIDED USING URINAL AND THEN TRANSFERRED TO CHAIR WITH SBA AND FWW. DENIES FURTHER REQUESTS, CALL LIGHT IS WITHIN REACH.
--- NOTE | 2017-02-16 00:39 | NUR ---
ASSISTED PATIENT TO THE BATHROOM AND BACK TO CHAIR USING WALKER. NOTICED THAT THE PATIENT WALKS UNSTEADY. NURSE NOTIFIED.
--- NOTE | 2017-02-16 01:44 | NUR ---
PT CALLED NEEDING TO USE THE BATHROOM, UP FROM CHAIR TO BATHROOM, VOIDED AND THEN RETURNED TO BED. FRESH ICE WATER PROVIDED PER REQUEST. PT DENIES FURTHER REQUESTS.
--- NOTE | 2017-02-16 03:23 | NUR ---
PT UP TO SIDE OF BED TO USE URINAL. PT THEN WANTED TO GET UP TO CHAIR. ASSESSMENT COMPLETED, NO CHANGES FROM PREVIOUS ASSESSMENT. CALL LIGHT IS WITHIN REACH, WILL CONTINUE TO MONITOR.
--- NOTE | 2017-02-16 05:13 | NUR ---
PT UP FREQUENTLY DURING NIGHT, MOVING BETWEEN BED AND CHAIR, PT STATES THAT THE BED IS UNCOMFORTABLE AND STATES THAT HE IS TIRED OF BEING HERE. ORIENTED. RA. NO PAIN. DRESSING TO TOE C/D/I. VOIDS FREQUENTLY. EDEMA PRESENT IN BLE. PT CAN HAVE BEERS WITH MEALS. 1-PA WITH FWW.
--- NOTE | 2017-02-16 05:43 | NUR ---
PT UP TO BATHROOM WITH SBA AND FWW, VOIDED AND THEN RETURNED TO CHAIR. FRESH ICE WATER PROVIDED PER REQUEST. DENIES FURTHER NEEDS, CALL LIGHT IS WITHIN REACH.
--- NOTE | 2017-02-16 07:35 | NUR ---
REPORT RECEIVED FROM FARRUKH PRUITT. PT AWAKE AND SITTING UP IN CHAIR. PT HAS FLAT AFFECT AND APPEARS CRANKY. STATES HE HAS BEEN HERE FOREVER AND WOULD LIKE TO GO HOME. DENIES PAIN ATT.
--- NOTE | 2017-02-16 09:38 | NUR ---
DR LEROY IN TO SEE PT. PT REPORTS THE DR SAID HE COULD GO HOME TODAY. DID NOT TALK TO RAD MYSELF, WILL FOLLOW UP WITH DR HANKS.
--- NOTE | 2017-02-16 09:52 | NUR ---
ADMINISTERED PO AB. PT TOLERATED WELL. DROWSY BUT AROUSABLE. STATES HE HAS NOT SLEPT WELL WHILE BEING HERE.
--- NOTE | 2017-02-16 11:01 | NUR ---
ASSISTED PT TO RESTROOM USING FWW. PT A LITTLE UNSTEADY WHEN FIRST STANDING. SLOW TO RESPOND
--- NOTE | 2017-02-16 12:53 | NUR ---
JEWEL ARTEAGA TO SIT IN CHAIR. IS WONDERING WHEN HE WILL BE DISCHARGED. TOLD HIM SOON WE KNOW WE WILL LET HIM KNOW.
[2017-02-16] MEDS ORDERED: METOPROLOL SUC100 MG PO (13:51)
[2017-02-16] MEDS ORDERED: LEVOFLOXACIN250 MG PO (13:51)
--- NOTE | 2017-02-16 13:59 | NUR ---
PT SITTING IN CHAIR, HIS TERE SCRATCHING HIS BACK. PT MOTIONED ME IN, I INTRODUCED MYSELF. NOT MUCH ON CONVERSATION, KIND OF GRUFF. SAID HE HOPES TO BE DC'D TODAY, I WISHED HIM WELL AND EXTENDED A BLESSING. WILL FOLLOW NEEDED
--- NOTE | 2017-02-16 14:59 | NUR ---
PT EDUCATION GIVEN, PT VERBALIZED UNDERSTANDING. IV REMOVED LAST SHIFT WNL. VS STABLE. HERE TO PICK HIM UP. WHEELED OUT WITH NURSING STAFF.
== END 2017-02-16 14:35 | disposition home or self-care (01) | DRG 503 ==
LOC: MS 09:24 → CCU 09:24 → MS 02-15 17:49
PROVIDERS: ADMIT Orthopaedic Surgery
PROC: 0Y6T0Z0 Detachment at Right 3rd Toe, Complete, Open Approach (ICD-10-PCS; principal; 2017-02-13)
DX: M86.171 Other acute osteomyelitis, right ankle and foot (principal); G93.41 Metabolic encephalopathy; N17.9 Acute kidney failure, unspecified; F10.231 Alcohol dependence with withdrawal delirium; E87.1 Hypo-osmolality and hyponatremia; I10 Essential (primary) hypertension; E03.9 Hypothyroidism, unspecified; K21.9 Gastro-esophageal reflux disease without esophagitis; F39 Unspecified mood [affective] disorder; E66.01 Morbid (severe) obesity due to excess calories; T39.395A Adverse effect of other nonsteroidal anti-inflammatory drugs [NSAID], initial encounter; B95.5 Unspecified streptococcus as the cause of diseases classified elsewhere; B96.4 Proteus (mirabilis) (morganii) as the cause of diseases classified elsewhere
CPT/HCPCS: 01482; 36415; 71010; 76775; 80053; 80069; 80202; 81001; 82247; 82465; 82570; 82728; 83036; 83540; 83615; 83735; 84100; 84300; 84425; 84466; 84478; 84540; 84550; 85025; 85610; 85651; 86140; 86850; 86900; 86901; 87070; 87075; 87077; 87186; 87205; 89051; 93005; 93010; 94760; 94762; G0480; J1335; J2270; J2405; J2704; J3010; J3360; J3370; J3411; J7030; J7042; J7060; J7120

== ENCOUNTER 2017-04-12 07:38 | Emergency (ER) | payer BC ==
[~2017-04-12] VITALS: Ht 180.3 cm; Wt 145.2 kg
[~2017-04-12 07:38] MED LIST: CIPRO500 MG PO; FUROSEMIDE20 MG PO; KEFLEX500 MG PO; LEVOFLOXACIN250 MG PO; LEVOTHYROXINE50 MCG PO; LISINOPRIL20 MG PO; MELOXICAM15 MG PO; METOPROLOL SUC100 MG PO; OMEPRAZOLE20 MG PO; OXYCODONE HCL10 MG PO; POTASSIUM CHLO20 ME1 PO; SERTRALINE HCL100 MG PO
[2017-04-12] MEDS ORDERED: LISINOPRIL20 MG PO (07:52)
[2017-04-12] MEDS ORDERED: TORSEMIDE20 MG PO (07:53)
[2017-04-12] MEDS ORDERED: DULOXETINE HCL60 MG PO (07:53)
== END 2017-04-12 09:15 | disposition home or self-care (01) ==
LOC: ED 07:38
DX: N50.89 Other specified disorders of the male genital organs (principal); I10 Essential (primary) hypertension; Z87.891 Personal history of nicotine dependence; Z91.048 Other nonmedicinal substance allergy status; Z98.890 Other specified postprocedural states; Z79.899 Other long term (current) drug therapy
CPT/HCPCS: 76870; 80053; 81001; 85025; 99284

== ENCOUNTER 2019-01-24 13:40 | Emergency (ER) | payer BC ==
[~2019-01-24] VITALS: Ht 180.3 cm; Wt 139.2 kg
[~2019-01-24 13:40] MED LIST changes: +CYCLOBENZAPRINE10 MG PO; +DULOXETINE HCL60 MG PO; +MEDROL4 M1 PO; +PRAZOSIN HCL2 MG PO; +TORSEMIDE20 MG PO; +TRAMADOL HCL50 MG PO
--- OUTSIDE RECORDS SUMMARY | 2019-01-24 13:42 | XMS ---
PreManage Notification: NORA NUNEZ [employer] Events No recent Security Events currently on file CRITERIA MET - - Has Care Guidelines - - 2 Visits in 30 Days CARE PROVIDERS NAVIN LLOYD Internal Medicine 11/21/2018-Current PHONE: Unknown NAVIN LLOYD Primary Care Current PHONE: Unknown MJ SMITH Primary Care Elida SON PHONE: Unknown ANURADHA WINSLOW Primary Care [facility] PHONE: Unknown Raymond has no Care Guidelines for this patient. Care History Medical/Surgical 11/21/2018 [facility] - Patient is currently established with [facility]. If patient is seen in the ED during business hours. Please contact CHWs at [facility]. Care Recommendation: This patient has had 5 or more Emergency Department visits in the last 12 months.\T\nbsp; Patient requires education on the scope and purpose of the ED as an acute care provider not a Primary Care Provider and should not be utilized for chronic conditions.\T\nbsp; These are guidelines and the provider should exercise clinical judgment when providing care. E.D. VISIT COUNT (12 MO.) [facility] 3 [facility]. TOTAL 4 NOTE: Visits indicate total known visits. ED/UCC VISIT TRACKING (12 MO.) 01/24/2019 13:41 [facility] [place] TYPE: Emergency COMPLAINT: - KNEE SWELLING, POSSIBLE INFECTION 12/29/2018 15:57 [facility] [place] TYPE: Emergency DIAGNOSES: - Encounter for follow-up examination after completed treatment for conditions other than malignant neoplasm - Other specified soft tissue disorders - SWELLING TO L KNEE 11/18/2018 09:16 [facility] [place] TYPE: Emergency COMPLAINT: - UNABLE TO USE LEGS DIAGNOSES: - Allergy status to other drugs, medicaments and biological substances status - Other nonmedicinal substance allergy status - Intraspinal abscess and granuloma - Essential (primary) hypertension - Other moth exterminator (current) drug therapy - Low back pain - Hypo-osmolality and hyponatremia 11/15/2018 19:30 [facility] [place] TYPE: Emergency COMPLAINT: - BACK PAIN DIAGNOSES: - Strain of muscle, fascia and tendon of lower back, initial encounter - Other and unspecified overexertion or strenuous movements or postures, initial encounter - Allergy status to other drugs, medicaments and biological substances status - Essential (primary) hypertension - Low back pain - Other long-term (current) drug therapy INPATIENT VISIT TRACKING (12 MO.) 11/18/2018 22:19 [facility] [place] TYPE: Orthopedic DIAGNOSES: - Presence of unspecified artificial knee joint - Essential (primary) hypertension - Anxiety disorder, unspecified - Hypo-osmolality and hyponatremia - Personal history of other diseases of the musculoskeletal system and connective tissue - Bacteremia - Infection and inflammatory reaction due to internal left knee prosthesis, initial encounter - Alcohol dependence with withdrawal delirium - Infection and inflammatory reaction due to other internal joint prosthesis, initial encounter - Other symptoms and signs involving the nervous system - Other specified health status - Infection and inflammatory reaction due to other internal joint prosthesis, subsequent encounter - Extradural and subdural abscess, unspecified - Hypothyroidism, unspecified [email or web address]
[2019-01-24] MEDS ORDERED: OXYCODONE HCL5 MG PO (13:58)
[2019-01-24] MEDS ORDERED: GABAPENTIN100 MG PO (13:58)
[2019-01-24] MEDS ORDERED: GABAPENTIN400 MG PO (13:58)
[2019-01-24] MEDS ORDERED: CELECOXIB200 MG PO (13:58)
== END 2019-01-24 17:59 | disposition home or self-care (01) ==
LOC: ED 13:40
PROC: 0S9D3ZZ Drainage of Left Knee Joint, Percutaneous Approach (ICD-10-PCS; principal; 2019-01-24)
DX: M25.562 Pain in left knee (principal); M79.89 Other specified soft tissue disorders; I10 Essential (primary) hypertension; Z87.891 Personal history of nicotine dependence; Z91.048 Other nonmedicinal substance allergy status; Z88.8 Allergy status to other drugs, medicaments and biological substances; Z79.899 Other long term (current) drug therapy
CPT/HCPCS: 20610; 36415; 83605; 99283-25

== ENCOUNTER 2019-06-13 13:53 | Emergency (ER) | payer BC ==
[~2019-06-13] VITALS: Ht 180.3 cm; Wt 158.8 kg
[~2019-06-13 13:53] MED LIST changes: +CELECOXIB200 MG PO; +GABAPENTIN100 MG PO; +GABAPENTIN400 MG PO; +OXYCODONE HCL5 MG PO
== END 2019-06-13 21:00 | disposition short-term general hospital (02) ==
LOC: ED 13:53
DX: M97.12XA Periprosthetic fracture around internal prosthetic left knee joint, initial encounter (principal); S76.112A Strain of left quadriceps muscle, fascia and tendon, initial encounter; I10 Essential (primary) hypertension; I25.10 Atherosclerotic heart disease of native coronary artery without angina pectoris; Z88.8 Allergy status to other drugs, medicaments and biological substances; Z79.891 Long term (current) use of opiate analgesic; Z79.899 Other long term (current) drug therapy; W18.30XA Fall on same level, unspecified, initial encounter
CPT/HCPCS: 73560; 96374; 96375; 99284-25; J1170; J2405